=== PATIENT | female | born 1990 | race Hispanic/Latino ===

== ENCOUNTER 2024-08-24 09:50 | Emergency (ER) | payer SELFPAY ==
[2024-08-24] MEDS ORDERED: NA CHLORIDE 0.9% 1,000 ML ONE (10:22)
[2024-08-24] MEDS ORDERED: ACETAMINOPHEN 500 MG TAB ONE (10:22)
[2024-08-24 10:23] LABS: Absolute Basophils 0.1 K/uL (0-0.5); Absolute Eosinophils 0.1 K/uL (0-0.5); Absolute Lymphocytes (CBC) 1.5 K/uL (0.7-4.9); Absolute Monocytes 0.6 K/uL (0.1-1.3); Absolute Neutrophil 5.6 K/uL (1.8-8.0); Basophils % 0.7 % (0-1.3); Eosinophils % 0.8 % (0-4.4); Hematocrit 40.4 % (36.0-45.0); Hemoglobin 13.7 g/dL (12.0-15.0); Lymphocytes % 19.7 % (15.3-44.8); MCH 27.9 pg (27.0-35.0); MCV 82.1 fL (80-100); MPV 8.2 fL (7.6-11.3); Monocytes % 7.3 % (3.3-12.3); Neutrophils % 71.5 % (41.7-73.7); Platelets 241 thou/uL (152-406); RBC Red Blood Cell Count 4.92 M/uL (3.86-4.86); Red Cell Distribution Width 15.2 % (12.1-15.2)
[2024-08-24 10:33] LABS: ALT/SGPT 35 U/L (13-56); AST/SGOT 15 U/L (15-37); Albumin 3.3 g/dL (3.4-5.0); Albumin/Globulin Ratio 0.8 (1.1-1.8); Alkaline Phosphatase 85 U/L (45-117); Anion Gap 7.6 mEq/L (5.0-15.0); BUN Blood Urea Nitrogen 10 mg/dL (7-18); Bicarbonate 26 mEq/L (21-32); Bilirubin Total 0.5 mg/dL (0.2-1.0); Globulin 4.1 g/dL (2.3-3.5); Glomerular Filtration Rate 91 ml/min (=/>90); Glucose Level 83 mg/dL (74-106); Magnesium 2.1 mg/dL (1.6-2.4); Potassium 3.6 mEq/L (3.5-5.1); Protein, Total 7.4 g/dL (6.4-8.2); Sodium Level 137 mEq/L (136-145)
[2024-08-24 10:34] LABS: Bilirubin Direct < 0.2 mg/dL (0-0.2); Bilirubin Indirect, Calculated 0.3 mg/dL (0.2-0.8); Troponin High Sensitivity < 3.0 pg/mL (<58.9)
--- NOTE | 2024-08-24 11:00 | RAD REPORT ---
Procedure: Chest Single View HISTORY: Syncope COMPARISON: none FINDINGS: The lungs appear clear of acute infiltrate. No significant pleural effusion noted. The heart is normal size. IMPRESSION: No acute abnormality is displayed.
--- NOTE | 2024-08-24 11:10 | ER ---
Nurse's Notes [facility] Name: Esperanza Seth Age: 34 yrs Sex: Female : 1990 Arrival Date: 08/24/2024 Time: 09:50 Bed 16 Private MD: Diagnosis: syncope Presentation: 08/24 09:58 Chief complaint: EMS states: Was at [employer] lifting weights, had a syncopal ph episode witnessed by bystanders who reported that pt may have hit her head on the weights. Initial BP on scene 107/70, HR 80s but increases to 110 when pt sits up or stands, Pt oriented x 4 but slow to respond to questioning. Coronavirus screen: Vaccine status: Patient reports being unvaccinated. Ebola Screen: No symptoms or risks identified at this time. Initial Sepsis Screen: Does the patient meet any 2 criteria? No. Patient's initial sepsis screen is negative. Does the patient have a suspected source of infection? No. Patient's initial sepsis screen is negative. Risk Assessment: Do you want to hurt yourself or someone else? Patient reports no desire to harm self or others. Onset of symptoms was August 24, 2024. 09:58 Method Of Arrival: EMS: [facility] ph 09:58 Acuity: KARLA 2 ph Triage Assessment: 10:05 General: Appears in no apparent distress. well groomed, Behavior is calm, cooperative, ph drowsy. Pain: Denies pain. Neuro: Level of Consciousness is awake, alert, obeys commands, Oriented to person, place, time, situation, slow to respond to questions. Reports numbness in left eye. Cardiovascular: Reports lightheadedness, nausea, syncope, Capillary refill < 3 seconds in bilateral fingers Patient's skin is warm and dry. Respiratory: Airway is patent Respiratory effort is even, unlabored. Derm: Skin is pink, warm \T\ dry. Historical: - Allergies: 10:03 No Known Allergies; ph - Immunization history:: Adult Immunizations unknown. - Infectious Disease History:: Denies. - Social history:: Smoking status: Patient reports the use of cigarette tobacco products, denies chronic smoking, but will smoke occasionally. - Family history:: not pertinent. Screenin:[facility] ED Fall Risk Assessment (Adult) History of falling in the last 3 months, ph including since admission Yes- physiologic fall (2 pts) Confusion or Disorientation Yes (5 pts) Intoxicated or Sedated No (0 pts) Impaired Gait No (0 pts) Mobility Assist Device Used No (0 pt) Altered Elimination No (0 pt) Score/Fall Risk Level 3 or more points = High Risk Oriented to surroundings, Maintained a safe environment, Hourly rounding (assess needs \T\ fall precautionary measures) done, Used ambulatory aids as needed (educated on \T\ assisted with). Abuse screen: Denies threats or abuse. Denies injuries from another. Nutritional screening: No deficits noted. Tuberculosis screening: No symptoms or risk factors identified. Assessment: 10:04 Reassessment: Pt currently declining head CT. ph 10:09 General: SEE TRIAGE ASSESSMENT. ph 11:30 Reassessment: Patient appears in no apparent distress at this time. Patient and/or ph family updated on plan of care and expected duration. Pain level reassessed. Patient is alert, oriented x 3, equal unlabored respirations, skin warm/dry/pink. Patient states feeling better. Patient states symptoms have improved. Vital Signs: 09:58 Pulse 79; Resp 18; Temp 97.8; Pulse Ox 100% on R/A; Weight 58.97 kg; Height 5 ft. 4 in. ph ; 10:10 BP 99 / 63; ph 11:30 BP 106 / 78; Pulse 72; Resp 18; Temp 98; Pulse Ox 98% on R/A; ph 09:58 Body Mass Index 22.31 (58.97 kg, 162.56 cm) ph ED Course: 09:58 Patient arrived in ED. ph 09:59 Iain Savage MD is Attending Physician. rt 10:03 Triage completed. ph 10:04 Initial lab(s) drawn, by ED staff, sent to lab. EKG done, by ED staff, reviewed by Iain Savage MD. Maintain EMS IV. Dressing intact. Site clean \T\ dry. Gauge \T\ site: 20 R hand. Flushed with 10 mL NS. Inserted saline lock: 20 gauge in left antecubital area, using aseptic technique. Blood collected. Flushed with 10 mL NS. 10:07 Arm band placed on Patient placed in an exam room, on cardiac specialist, on pulse ph oximetry. 10:07 Patient has correct armband on for positive identification. Bed in low position. Side ph rails up X2. Client placed on continuous cardiac and pulse oximetry monitoring. NIBP monitoring applied. classroom monitor on. Door closed. Noise minimized. Warm blanket given. Pillow given. 10:11 Radha Beasley, RN is Primary Nurse. ph 10:28 XRAY Chest (1 view) In Process Unspecified. EDMS 11:30 No provider procedures requiring assistance completed. IV discontinued, intact, ph bleeding controlled, No redness/swelling at site. Pressure dressing applied. Administered Medications: 10: Drug: NS 0.9% IV 1000 ml IV at 1 bolus Per protocol; to be given as a bolus over 60 ph minutes Route: IV; Rate: 1 bolus; Site: left antecubital; 11:31 Follow up: Response: No adverse reaction; IV Status: Completed infusion; IV Intake: ph 1000ml 10: Drug: Acetaminophen PO 1000 mg PO once Route: PO; ph 11:31 Follow up: Response: No adverse reaction ph Medication: 10: VIS not applicable for this client. ph Point of Care Testing: Blood Glucose: 10: Blood Glucose: 86 mg/dL; ph Ranges: Intake: 11:31 IV: 1000ml; Total: 1000ml. ph Outcome: 11: Discharge ordered by . rt 11:30 Discharged to home ambulatory, with significant other, ph 11:30 Condition: good 11:30 Discharge instructions given to patient, Instructed on discharge instructions, follow up and referral plans. Demonstrated understanding of instructions, follow-up care, :31 Patient left the ED. ph Signatures: Dispatcher [employer] [facility] Radha Beasley RN RN ph Iain Savage MD MD rt
--- NOTE | 2024-08-24 11:10 | EDPHYS ---
Physician Documentation [facility] Name: Esperanza Seth Age: 34 yrs Sex: Female : 1990 Arrival Date: 08/24/2024 Time: 09:50 Bed 16 Private MD: ED Physician Iain Savage HPI: 08/24 10:37 This 34 yrs old Female presents to ER via EMS with complaints of Syncope. rt 10:37 Patient presents to the ED following syncopal event. The patient was doing bicep curls rt when she lost consciousness. Had nausea but received Zofran by EMS, no further nausea. She reports hitting her head on a weight stack. She denies chest pain, feels dizzy but denies other acute complaints, symptoms are moderate in severity, no other aggravating or alleviating factors.. Historical: - Allergies: 10:03 No Known Allergies; ph - Immunization history:: Adult Immunizations unknown. - Infectious Disease History:: Denies. - Social history:: Smoking status: Patient reports the use of cigarette tobacco products, denies chronic smoking, but will smoke occasionally. - Family history:: not pertinent. ROS: 10:37 Constitutional: Negative for fever, chills, and weight loss, Cardiovascular: Negative rt for chest pain, palpitations, and edema, Respiratory: Negative for shortness of breath, cough, wheezing, and pleuritic chest pain, MS/Extremity: Negative for injury and deformity, Skin: Negative for injury, rash, and discoloration, Neuro: Negative for headache, weakness, numbness, tingling, and seizure, 10:37 Abdomen/GI: Positive for nausea, Negative for abdominal pain, 10:37 Neuro: Positive for loss of consciousness, syncope, Exam: 10:37 Constitutional: This is a well developed, well nourished patient who is awake, alert, rt and in no acute distress. Head/Face: Normocephalic, atraumatic. Chest/axilla: Normal chest wall appearance and motion. Nontender with no deformity. No lesions are appreciated. Cardiovascular: Regular rate and rhythm with a normal S1 and S2. No gallops, murmurs, or rubs. Normal PMI, no JVD. No pulse deficits. Respiratory: Lungs have equal breath sounds bilaterally, clear to auscultation and percussion. No rales, rhonchi or wheezes noted. No increased work of breathing, no retractions or nasal flaring. Abdomen/GI: Soft, non-tender, with normal bowel sounds. No distension or tympany. No guarding or rebound. No evidence of tenderness throughout. Skin: Warm, dry with normal turgor. Normal color with no rashes, no lesions, and no evidence of cellulitis. MS/ Extremity: Pulses equal, no cyanosis. Neurovascular intact. Full, normal range of motion. 10:37 ECG was reviewed by the Attending Physician. Vital Signs: 09:58 Pulse 79; Resp 18; Temp 97.8; Pulse Ox 100% on R/A; Weight 58.97 kg; Height 5 ft. 4 in. ph ; 10:10 BP 99 / 63; ph 11:30 BP 106 / 78; Pulse 72; Resp 18; Temp 98; Pulse Ox 98% on R/A; ph 09:58 Body Mass Index 22.31 (58.97 kg, 162.56 cm) ph MDM: 09:59 Medical Screening Exam initiated rt 16:12 Differential Diagnosis: Syncope, vasovagal event, dysrhythmia, electrolyte disturbance. rt Data reviewed: vital signs, nurses notes, lab test result(s), EKG. Consideration of Admission/Observation Escalation of care including admission/observation considered. Unremarkable EKG, stable labs, symptoms are improved with IV hydration, no indications for admission at this time.. I considered the following discharge prescriptions or medication management in the emergency department Medications were administered in the Emergency Department. See MAR. Independent interpretation of the following test(s) in the Emergency Department X-Ray: My interpretation is No infiltrate seen on interpretation of x-ray images. Test considered but Not performed: CT: Patient had head trauma, I recommended the patient receive a CT scan of the head, she declined this states that she has no headache at this time. Patient understands risks of missed head bleed, has capacity to refuse CT scan, was informed of concerning findings of head trauma, will return for worsening symptoms.. Counseling: I had a detailed discussion with the patient and/or guardian regarding the historical points, exam findings, and any diagnostic results supporting the discharge/admit diagnosis, lab results, radiology results, the need for outpatient follow up, to return to the emergency department if symptoms worsen or persist or if there are any questions or concerns that arise at home. Response to treatment: the patient's symptoms have markedly improved after treatment. 08/24 09:59 Order name: Basic Metabolic Panel; Complete Time: 10:36 rt 08/24 09:59 Order name: CBC with Diff; Complete Time: 10:36 rt 08/24 09:59 Order name: LFT's; Complete Time: 10:36 rt 08/24 09:59 Order name: Magnesium; Complete Time: 10:36 rt 08/24 09:59 Order name: Troponin HS; Complete Time: 10:36 rt 08/24 09:59 Order name: Test, Serum; Complete Time: 10:36 rt 08/24 09:59 Order name: XRAY Chest (1 view); Complete Time: 11:05 rt 08/24 09:59 Order name: EKG; Complete Time: 10:00 rt 08/24 09:59 Order name: Cardiac monitoring; Complete Time: 10:12 rt 08/24 09:59 Order name: EKG - Nurse/Tech; Complete Time: 10:12 rt 08/24 09:59 Order name: IV Saline Lock; Complete Time: 10:12 rt 08/24 09:59 Order name: Labs collected and sent; Complete Time: 10:12 rt 08/24 09:59 Order name: O2 Per Protocol; Complete Time: 10:12 rt 08/24 09:59 Order name: O2 Sat Monitoring; Complete Time: 10:12 rt EC:37 Rate is 81 beats/min. Rhythm is regular, Normal Sinus Rhythm with No ectopy. QRS Dexter rt is Normal. [place] interval is normal. QRS interval is normal. QT interval is normal. No Q waves. T waves are Normal. No ST changes noted. Interpreted by me. Administered Medications: : Drug: NS 0.9% IV 1000 ml IV at 1 bolus Per protocol; to be given as a bolus over 60 ph minutes Route: IV; Rate: 1 bolus; Site: left antecubital; 11:31 Follow up: Response: No adverse reaction; IV Status: Completed infusion; IV Intake: ph 1000ml Drug: Acetaminophen PO 1000 mg PO once Route: PO; ph 11:31 Follow up: Response: No adverse reaction ph Point of Care Testing: Blood Glucose: 10:06 Blood Glucose: 86 mg/dL; ph Ranges: Critical Glucose Levels:Adult <50 mg/dl or >400 mg/dl <40 mg/dl or >180 mg/dl Disposition Summary: 08/24/24 11:10 Discharge Ordered Notes: Location: Home rt Problem: new rt Symptoms: have improved rt Condition: Stable rt Diagnosis - syncope rt Followup: rt - With: Private Physician - When: 2 - 3 days - Reason: Discharge Instructions: - Discharge Summary Sheet rt - Syncope rt Forms: - Medication Reconciliation Form rt - Antibiotic Education rt - Prescription Opioid Use rt - Patient Portal Instructions rt - Leadership Thank You Letter rt Signatures: Dispatcher [employer] EDRadha Roy, RN RN ph Iain Savage MD MD rt Corrections: (The following items were deleted from the chart) 10:00 10:00 BASIC METABOLIC PANEL+C.LAB.BRZ ordered. EDMS EDMS 10:00 10:00 CBC+H.LAB.BRZ ordered. EDMS EDMS 10:00 10:00 HEPATIC FUNCTION+C.LAB.BRZ ordered. EDMS EDMS 10:00 10:00 MAGNESIUM+C.LAB.BRZ ordered. EDMS EDMS 10:00 10:00 Troponin High Sensitivity+C.LAB.BRZ ordered. EDMS EDMS 10:00 10:00 TEST, SERUM+SC.LAB.BRZ ordered. EDMS EDMS
[2024-08-24 13:43] VITALS: BP 106/78; TEMP 98; O2SAT 98
--- OUTSIDE RECORDS SUMMARY | 2024-08-25 02:19 | XMS REPORT | Continuity of Care Document ---
Author Name Unknown Address [address] [facility] [address] [place] [address] [facility] Address [address] [facility] [place] [address] Care Team Providers Care Director Of Institutional Giving Name Role Phone PCP, PATIENT DOES NOT HAVE A Primary Care Physic [email or web address] Unavailable TYLER AMBROSE Attending Clinician Unavailable TYLER AMBROSE Attending Clinician Unavailable TYLER AMBROSE Admitting Clinician Unavailable Allergies, Adverse Reactions, Alerts Allergy Name Allergy Type Status Severity Reaction(s) Onset Date Inactive Date Treating Clinician Comments Source NO KNOWN ALLERGIE S Drug Class Active [facility] Encounters Start Date/Time End Date/Time Encounter Type Admission Type Attending Clinicians Care Facility Care Department Encounter ID Source 2019-07-02 09:10:28 2019-07-02 23:59:00 Outpatient R TYLER AMBROSE [facility] [id number] [facility]
--- NOTE | 2024-08-25 12:31 | EKG ---
Test Date: 2024-08-24 Test Time: 09:55:00 Carpenter Inspector: MARTHA MEASUREMENT RESULTS: Intervals: Rate: 81 SC: 138 QRSD: 74 QT: 390 QTc: 453 [place]: P: 68 SC: 138 QRS: 55 T: 46 INTERPRETIVE STATEMENTS: Normal sinus rhythm with sinus arrhythmia Low voltage QRS Borderline ECG No previous ECG available for comparison Electronically Signed On 08-25-24 12:29:29 G[employer] by Syed Padron
== END 2024-08-24 11:31 | disposition home or self-care (01) ==
LOC: ER 09:50
DX: R55 Syncope and collapse (principal); R11.0 Nausea
CPT/HCPCS: 36415; 71045; 80048; 80076; 83735; 84484; 84703; 85025; 93005; 96360; 99285; J7030